=== PATIENT | female | born 1975 | race Caucasian/White ===

== ENCOUNTER → 2018-02-05 09:20 | Outpatient (CLI) | payer OTHER, SELFPAY ==
[2018-02-05 12:45] LABS: Thyroid Stim Hormone (TSH) 2.38 uIU/mL (0.358-3.74)
== END ==
PROVIDERS: Visit Provider Internal Medicine Endocrinology, Diabetes & Metabolism
DX: E03.9 Hypothyroidism, unspecified (principal)
CPT/HCPCS: 36415; 84443

== ENCOUNTER → 2018-04-13 09:30 | Outpatient (CLI) | payer OTHER, SELFPAY ==
[2018-04-13 12:34] LABS: ALB/GLOB Ratio 1.2 RATIO (0.9-2.4); AST(SGOT) 13 U/L (15-37); Alanine Aminotransfer ALT/SGPT 20 U/L (13-56); Albumin, Serum 3.9 g/dL (3.2-5.0); Alkaline Phosphatase 41 U/L (45-117); Anion Gap 9 (5-15); BUN 12 mg/dL (7-18); BUN/Creat Ratio 13.2 RATIO (10-20); Calcium,Total 8.3 mg/dL (8.5-10.1); Chloride 106 mmol/L (98-107); Creatinine, Serum 0.91 mg/dL (0.55-1.02); EST Glomerular Filtration Rate 72 mL/min (>60); Est Glom Filt Rate - Afr Amer 87 mL/min (>60); Free T3 2.5 pg/mL (2.18-3.98); Globulin 3.3 g/dL (2.2-4.2); Glucose 84 mg/dL (74-106); Potassium 3.7 mmol/L (3.5-5.1); Protein, Total 7.2 g/dL (6.4-8.2); Sodium Level 143 mmol/L (136-145); T4 Free Direct 1.14 ng/dL (0.76-1.46); Thyroid Stim Hormone (TSH) 2.24 uIU/mL (0.358-3.74)
== END ==
PROVIDERS: Visit Provider Internal Medicine Endocrinology, Diabetes & Metabolism
DX: E03.9 Hypothyroidism, unspecified (principal); R61 Generalized hyperhidrosis
CPT/HCPCS: 36415; 80053; 84439; 84443; 84481

== ENCOUNTER → 2019-04-23 08:55 | Outpatient (CLI) | payer OTHER, SELFPAY ==
[2019-04-23 10:45] LABS: Free T3 2.7 pg/mL (2.18-3.98); T4 Free Direct 1.17 ng/dL (0.76-1.46); Thyroid Stim Hormone (TSH) 1.18 uIU/mL (0.358-3.74); Vitamin D,25 Hydroxy 79.6 ng/mL (29.95-100.01)
== END ==
PROVIDERS: Referring Provider Internal Medicine Endocrinology, Diabetes & Metabolism; Visit Provider Internal Medicine Endocrinology, Diabetes & Metabolism
DX: E03.9 Hypothyroidism, unspecified (principal)
CPT/HCPCS: 36415; 82306; 84439; 84443; 84481

== ENCOUNTER → 2019-11-11 09:19 | Outpatient (CLI) | payer OTHER, SELFPAY | PROVIDERS: Referring Provider Obstetrics & Gynecology; Visit Provider Obstetrics & Gynecology | DX: N64.4 Mastodynia (principal) ==

== ENCOUNTER → 2020-05-15 09:32 | Outpatient (CLI) | payer OTHER, SELFPAY ==
[2020-05-15 12:29] LABS: Vitamin D,25 Hydroxy 95.5 ng/mL
[2020-05-15 12:48] LABS: Anion Gap 6 (5-15); BUN 9 mg/dL (7-18); BUN/Creat Ratio 11.1 RATIO (10-20); Calcium,Total 8.6 mg/dL (8.5-10.1); Chloride 105 mmol/L (98-107); Creatinine, Serum 0.81 mg/dL (0.55-1.02); EST Glomerular Filtration Rate 81 mL/min (>60); Est Glom Filt Rate - Afr Amer 99 mL/min (>60); Glucose 89 mg/dL (74-106); Potassium 3.6 mmol/L (3.5-5.1); Sodium Level 139 mmol/L (136-145); T4 Free Direct 1.27 ng/dL (0.76-1.46); Thyroid Stim Hormone (TSH) 1.81 uIU/mL (0.358-3.74)
== END ==
PROVIDERS: Referring Provider Internal Medicine Endocrinology, Diabetes & Metabolism; Visit Provider Internal Medicine Endocrinology, Diabetes & Metabolism
DX: E03.9 Hypothyroidism, unspecified (principal)
CPT/HCPCS: 36415; 80048; 82306; 84439; 84443

== ENCOUNTER → 2021-06-08 07:36 | Outpatient (CLI) | payer OTHER, SELFPAY ==
[2021-06-08 10:22] LABS: Vitamin D,25 Hydroxy 73.8 ng/mL
[2021-06-08 10:48] LABS: ALB/GLOB Ratio 1.3 RATIO (0.9-2.4); AST(SGOT) 20 U/L (15-37); Alanine Aminotransfer ALT/SGPT 28 U/L (13-56); Albumin, Serum 4.3 g/dL (3.2-5.0); Alkaline Phosphatase 44 U/L (45-117); Anion Gap 5 (5-15); BUN 9 mg/dL (7-18); BUN/Creat Ratio 9.6 RATIO (10-20); Calcium,Total 9.2 mg/dL (8.5-10.1); Chloride 106 mmol/L (98-107); Creatinine, Serum 0.94 mg/dL (0.55-1.02); EST Glomerular Filtration Rate 69 mL/min (>60); Est Glom Filt Rate - Afr Amer 83 mL/min (>60); Globulin 3.3 g/dL (2.2-4.2); Glucose 97 mg/dL (74-106); Potassium 3.7 mmol/L (3.5-5.1); Protein, Total 7.6 g/dL (6.4-8.2); Sodium Level 139 mmol/L (136-145); T4 Free Direct 1.06 ng/dL (0.76-1.46); Thyroid Stim Hormone (TSH) 3.63 uIU/mL (0.358-3.74)
== END ==
PROVIDERS: Referring Provider Internal Medicine Endocrinology, Diabetes & Metabolism; Visit Provider Internal Medicine Endocrinology, Diabetes & Metabolism
DX: E06.3 Autoimmune thyroiditis (principal); E03.9 Hypothyroidism, unspecified
CPT/HCPCS: 36415; 80053; 82306; 84439; 84443

== ENCOUNTER → 2021-09-22 08:42 | Outpatient (CLI) | payer OTHER, SELFPAY ==
[2021-09-22 11:14] LABS: Free T3 2.2 pg/mL (2.18-3.98); T4 Free Direct 1.18 ng/dL (0.76-1.46); Thyroid Stim Hormone (TSH) 2.59 uIU/mL (0.358-3.74)
== END ==
PROVIDERS: Referring Provider Internal Medicine Endocrinology, Diabetes & Metabolism; Visit Provider Internal Medicine Endocrinology, Diabetes & Metabolism
DX: E03.9 Hypothyroidism, unspecified (principal); E06.3 Autoimmune thyroiditis
CPT/HCPCS: 36415; 84439; 84443; 84481

== ENCOUNTER → 2021-12-09 08:42 | Outpatient (CLI) | payer OTHER, SELFPAY ==
[2021-12-09 10:33] LABS: Follicle Stimulating Hormone 5.6 mIU/mL
== END ==
DX: N95.8 Other specified menopausal and perimenopausal disorders (principal)
CPT/HCPCS: 36415; 83001; 83002

== ENCOUNTER → 2022-06-06 | Outpatient (CLI) | payer OTHER, SELFPAY ==
[2022-06-06 10:15] LABS: Vitamin D,25 Hydroxy 87.6 ng/mL
[2022-06-06 10:44] LABS: ALB/GLOB Ratio 1.1 RATIO (0.9-2.4); AST(SGOT) 17 U/L (15-37); Alanine Aminotransfer ALT/SGPT 25 U/L (13-56); Albumin, Serum 3.8 g/dL (3.2-5.0); Alkaline Phosphatase 30 U/L (45-117); Anion Gap 6 (5-15); BUN 14 mg/dL (7-18); Calcium,Total 8.8 mg/dL (8.5-10.1); Chloride 104 mmol/L (98-107); Creatinine, Serum 1.08 mg/dL (0.55-1.02); EST Glomerular Filtration Rate 58 mL/min (>60); Est Glom Filt Rate - Afr Amer 70 mL/min (>60); Free T3 2.2 pg/mL (2.18-3.98); Globulin 3.5 g/dL (2.2-4.2); Glucose 94 mg/dL (74-106); Potassium 3.9 mmol/L (3.5-5.1); Protein, Total 7.3 g/dL (6.4-8.2); Sodium Level 137 mmol/L (136-145); T4 Free Direct 1.23 ng/dL (0.76-1.46); Thyroid Stim Hormone (TSH) 1.92 uIU/mL (0.358-3.74)
== END | disposition home or self-care (01) ==
LOC: MTLAB 07:50
PROVIDERS: Referring Provider Internal Medicine Endocrinology, Diabetes & Metabolism; Visit Provider Internal Medicine Endocrinology, Diabetes & Metabolism
DX: E06.3 Autoimmune thyroiditis (principal); E03.9 Hypothyroidism, unspecified
CPT/HCPCS: 36415; 80053; 82306; 84439; 84443; 84481

== ENCOUNTER → 2022-07-14 | Outpatient (CLI) | payer OTHER, SELFPAY ==
[2022-07-15 22:06] LABS: Thyroid Peroxidase AB 70 IU/mL (0-34)
[2022-07-17 09:09] LABS: Thyroglobulin Antibody < 1.0 IU/mL (0.0-0.9)
== END | disposition home or self-care (01) ==
LOC: MTLAB 08:46
PROVIDERS: Referring Provider Internal Medicine Endocrinology, Diabetes & Metabolism; Visit Provider Internal Medicine Endocrinology, Diabetes & Metabolism
DX: E06.3 Autoimmune thyroiditis (principal); E03.9 Hypothyroidism, unspecified
CPT/HCPCS: 36415; 86376; 86800

== ENCOUNTER 2023-02-19 22:42 | Inpatient (IN) | payer OTHER, SELFPAY ==
[2023-02-19 22:42] VITALS: BP 112/64; PULSE 76; RESP 16; TEMP 36.6; O2SAT 98; BMI 23.7
--- NOTE | 2023-02-19 22:58 | CT_ITS ---
We are attempting to reach an attending provider to discuss findings. An addendum with communication details will be sent when the communication is complete. EXAM: CT ANGIOGRAPHY ABDOMEN AND PELVIS WITHOUT AND WITH INTRAVENOUS CONTRAST CLINICAL INDICATION: abd pain TECHNIQUE: Helically acquired angiography images were obtained of the abdomen and pelvis without and with intravenous contrast. This CT exam was performed using one or more of the following dose reduction techniques: automated exposure control, adjustment of the mA and/or kV according to patient size, and/or use of iterative reconstruction technique. MIP reconstructed images were created and reviewed. CONTRAST: 100 cc of Isovue-370 IV. RADIATION DOSE: CTDIvol = 20.94 mGy, DLP = 306.78 mGy-cm COMPARISON: No relevant prior studies available. FINDINGS: VASCULATURE: AORTA: No acute findings. Normal caliber abdominal aorta. No dissection. CELIAC TRUNK AND MESENTERIC ARTERIES: No acute findings. No occlusion or significant stenosis. No dissection. RENAL ARTERIES: No acute findings. No occlusion or significant stenosis. No dissection. ILIAC ARTERIES: No acute findings. No occlusion or significant stenosis. No dissection. LOWER THORAX: Unremarkable. Lung bases are clear. No cardiomegaly. No significant pericardial effusion. ABDOMEN: LIVER: Unremarkable. Homogeneous. No focal mass. GALLBLADDER AND BILE DUCTS: Unremarkable. No calcified gallstones. No gallbladder distention or wall edema. No intra- or extrahepatic biliary ductal dilation. PANCREAS: Unremarkable. No focal cystic or solid mass. SPLEEN: Unremarkable. Normal size without focal cystic or solid mass. ADRENALS: Unremarkable. No nodules. KIDNEYS AND URETERS: Unremarkable. Normal renal size and position. No hydronephrosis. STOMACH AND BOWEL: The cecum is displaced into the mid abdomen and is very distended measuring 9 cm in diameter. There is a twist of the ascending colon. No focal inflammatory change. PELVIS: APPENDIX: No evidence of acute appendicitis. BLADDER: Unremarkable. REPRODUCTIVE: Unremarkable as visualized. No mass. ABDOMEN and PELVIS: INTRAPERITONEAL SPACE: Unremarkable. No ascites or other fluid collection. No free air. BONES/JOINTS: Unremarkable. No suspicious lytic or blastic abnormality. SOFT TISSUES: Small fat-containing paraumbilical hernia. LYMPH NODES: Unremarkable. No enlarged lymph nodes. CT/CTA Abd/Pelvis W/WO Contrast IMPRESSION: 1. Cecal volvulus. 2. Small fat-containing paraumbilical hernia. Electronically Signed: Galen Boudreaux MD at 0:22 EDT ,
--- NOTE | 2023-02-19 23:01 | EDS_ITS ---
HPI History of Present Illness Chief Complaint: Abd Pain Informant: patient Onset/Context/Timing Onset: Today Context: Gradual Onset Current Severity: Moderate Maximum Severity: Severe Narrative Narrative: Patient presents secondary to right-sided abdominal pain with nausea. Pain started around 4 5 this evening and is progressed. She had nausea but no vomiting. She feels that she has not had regular bowel movement today. Her diet has been off the last day or 2 after a in the family. She has not had fever or chills. She denies any prior abdominal surgeries. No history of kidney stones. She did take ibuprofen as well as naproxen prior to arrival. [facility] Medical History (Updated 02/20/23 @ 01:[address] Julia Gomez MD) Autoimmune thyroiditis Hypothyroidism Home Medications drospirenone 3 mg-ethinyl estradiol 0.02 mg tablet (Loryna (28)) 1 tab PO DAILY 02/20/23 [History Last Taken Unknown] levothyroxine 50 mcg tablet 50 mcg PO UD 02/20/23 [History Last Taken Unknown] levothyroxine 75 mcg tablet 75 mcg PO DAILY 02/20/23 [History Last Taken Unknown] Allergy/AdvReac Type Severity Reaction Status Date / Time doxycycline Allergy Angioedema Verified 02/19/23 22:44 Social History Smoking Status: Unknown if ever smoked ROS ROS ED Constitutional Constitutional ED: Denies chills or fever(s) Eyes Eyes: Denies discharge from eye(s) ENT ENT ED: Denies discharge from eye(s), rhinorrhea or sore throat Cardiovascular Cardiovascular: Denies chest pain or palpitations Respiratory/Chest Respiratory/Chest: Denies cough or dyspnea Gastrointestinal Gastrointestinal: Reports abdominal pain and nausea; Denies diarrhea or vomiting Genitourinary Genitourinary ED: Denies dysuria Musculoskeletal Musculoskeletal: Reports back pain; Denies extremity pain Integumentary Denies Abrasions or rash Neurologic Neurologic: Denies headache(s) or weakness Psychiatric Psychiatric: Denies anxiety or depression Allergic/Immunologic Allergic/Immunologic ED: Denies lip swelling or urticaria EXAM Physical Exam Const Vital Signs: 02/19/23 22:42 Temperature 98 F Temperature Source Temporal Pulse Rate 76 Respiratory Rate 16 Blood Pressure 112/64 Blood Pressure Mean 80 Pulse Ox 98 Oxygen Delivery Method Room Air Positive well nourished and well developed General Appearance ED: well developed HEENT Reports normocephalic and head/scalp atraumatic Eyes PERRL and EOMs intact bilaterally Neck supple Chest Wall inspection of chest normal and palpation of chest normal Resp normal respiratory effort and clear to auscultation bilaterally Cardio regular rate and regular rhythm GI GI Narrative: Hypoactive bowel sounds noted. Diffuse abdominal tenderness worse in the right lower quadrant out of proportion to exam. Palpation: soft Extremity normal to inspection Neuro oriented x3 and no sensory deficits noted Sensorium / Orientation: alert Motor Exam: strength 5/5 throughout Psych Mood & Affect: anxious Skin no rashes or lesions noted MDM MDM MDM Narrative Medical decision making narrative: Patient had taken anti-inflammatories prior to arrival. She is given morphine and Zofran. Labwork obtained to evaluate for leukocytosis, anemia, and electrolyte derangement. Urinalysis obtained to evaluate for infection/hematuria. CTA of the abdomen pelvis obtained given her degree of pain on exam. Lab Data Attestation: I reviewed the patient's lab results. Labs: Laboratory Results - last 24 hr 02/19/23 02/19/23 02/19/23 23:14 23:14 23:14 WBC 10.6 RBC 4.35 Hgb 13.9 Hct 39.2 MCV 90.1 MCH 32.0 MCHC 35.5 RDW Std Deviation 41.2 RDW Coeff of Carli 12.5 Plt Count 282 MPV 9.6 Immature Gran % (Auto) 0.300 Neut % (Auto) 67.1 Lymph % (Auto) 26.2 Charles % (Auto) 5.6 Eos % (Auto) 0.4 Baso % (Auto) 0.4 Absolute Neuts (auto) 7.1 Absolute Lymphs (auto) 2.79 Nucleated RBC % 0 Sodium 137 Potassium 3.7 Chloride 101 Carbon Dioxide 25.0 Anion Gap 11 BUN 20 H Creatinine 0.94 Estim Creat Clear Calc 61.86 Est GFR (MDRD) Af Amer 82 Est GFR (MDRD) Non-Af 68 BUN/Creatinine Ratio 21.2 H Glucose 150 H Lactic Acid 1.3 Calcium 9.2 Total Bilirubin 0.40 Direct Bilirubin 0.09 AST 21 ALT 29 Alkaline Phosphatase 29 L Total Protein 7.3 Albumin 3.8 Globulin 3.5 Serum , Qual Urine Color Urine Clarity Urine pH Ur Specific [place] Urine Protein Urine Glucose (UA) Urine Ketones Urine Occult Blood Urine Nitrite Urine Bilirubin Urine Urobilinogen Ur Leukocyte Esterase Urine RBC Urine WBC Ur Squamous Epith Cells Urine Bacteria Urine Mucus 02/19/23 02/20/23 23:14 00:20 WBC RBC Hgb Hct MCV MCH MCHC RDW Std Deviation RDW Coeff of Carli Plt Count MPV Immature Gran % (Auto) Neut % (Auto) Lymph % (Auto) Charles % (Auto) Eos % (Auto) Baso % (Auto) Absolute Neuts (auto) Absolute Lymphs (auto) Nucleated RBC % Sodium Potassium Chloride Carbon Dioxide Anion Gap BUN Creatinine Estim Creat Clear Calc Est GFR (MDRD) Af Amer Est GFR (MDRD) Non-Af BUN/Creatinine Ratio Glucose Lactic Acid Calcium Total Bilirubin Direct Bilirubin AST ALT Alkaline Phosphatase Total Protein Albumin Globulin Serum , Qual NEGATIVE Urine Color Yellow Urine Clarity Clear Urine pH 7.0 Ur Specific [place] 1.005 Urine Protein Negative Urine Glucose (UA) Normal Urine Ketones 15 H Urine Occult Blood 25 H Urine Nitrite Negative Urine Bilirubin Negative Urine Urobilinogen Normal Ur Leukocyte Esterase Negative Urine RBC 0 SEEN Urine WBC 0 SEEN Ur Squamous Epith Cells 0 SEEN Urine Bacteria 2+ Urine Mucus 1+ Radiography Diagnostic Testing: Clinical Impression(s) from Imaging Studies Abdomen/Pelvis CTA 02/19/23 22:58 IMPRESSION: 1. Cecal volvulus. 2. Small fat-containing paraumbilical hernia. Electronically Signed: Galen Boudreaux MD at 0:22 EDT , ADDENDUM: 02/20/23 0036 IMPRESSION: 1. Cecal volvulus. 2. Small fat-containing paraumbilical hernia. N.B. : The above Results were Read Back by Galen Boudreaux MD to Julia Gomez MD, and understanding confirmed on 02/20/2023 00:29:11 (ET). Electronically Signed: Galen Boudreaux MD at 0:22 EDT , Treatment and Re-Evaluation :: CBC was normal white count. No left shift. Chemistry studies unremarkable. Lactic acid is normal at 1.3. LFTs are normal. test is negative. Urinalysis reveals no evidence of acute infection. CTA of the abdomen pelvis is obtained. Radiologist feels there is a cecal volvulus. Patient did require second dose of analgesics. I have spoken with the surgeon who has evaluated the images and spoke with the radiologist. He will be in to evaluate the patient with plan to go to the OR. Patient along with her and daughter at bedside have been updated Discharge Plan Triage Chief Complaint: Abd Pain ED Provider: Julia Gomez Dx/Rx/DC Orders Clinical Impression: Cecal volvulus Prescriptions: No Action levothyroxine 50 mcg tablet 50 mcg PO UD Label Comments: TAKE 1 & 1/2 TABLETS BY MOUTH DAILY ON MONDAYS AND WEDNESDAYS AND 1 TABLET DAILY ON ALL OTHER DAYS Rx Instructions: 50 MCG ON , , FRI SAT & SUN drospirenone-ethinyl estradiol [Loryna (28)] 3-0.02 mg tablet 1 tab PO DAILY Label Comments: TAKE 1 TABLET BY MOUTH ONCE DAILY WITH FOOD levothyroxine 75 mcg Tablet 75 mcg PO DAILY Rx Instructions: TAKES 75 MCG ON MON & MON Primary Care Provider: Care Physician,No Primary Referrals: Care Physician,No Primary [Primary Care Provider] - Disposition Disposition: Acute Care Hospital [facility]
[2023-02-19] MEDS: Ondansetron 4 MG/2 ML Vial IV (23:12)
[2023-02-19] MEDS: 0.9% Normal Saline 1,000 ML 150 ML IV (23:13)
[2023-02-19] MEDS: Morphine 4 MG/ML Syringe IV (23:13)
[2023-02-19 23:27] LABS: Absolute Lymphocyte Count 2.79 X10^3/uL (0.83-4.51); Absolute Neutrophil Count 7.1 X10^3/uL (2.0-7.7); Basophil# 0.04 X10^3/uL; Basophil% 0.4 % (0-1); Eosinophil# 0.04 X10^3/uL; Eosinophils% 0.4 % (0-5); Hematocrit 39.2 % (37-47); Hemoglobin 13.9 g/dL (12.0-15.0); Lymphocyte # 2.79 X10^3/ul (0.83-4.51); Lymphocyte % 26.2 % (19-41); Mean Corp Hgb Conc 35.5 g/dL (32-36); Mean Corpuscular Volume 90.1 fL (81-99); Mean Platelet Vol. 9.6 fl (6.2-12.0); Monocyte# 0.59 X10^3/uL; Monocyte% 5.6 % (0-10); NRBC Flagged by Analyzer 0 % (0-5); Neutrophil # 7.14 X10^3/uL (2.7-7.7); Neutrophil % 67.1 % (47-70); Platelet Count 282 K/mm3 (150-450); RBC Distribution Width CV 12.5 % (11.6-14.6); RBC Distribution Width SD 41.2 fl (35.1-43.9); Red Blood Count 4.35 M/mm3 (4.2-5.4); White Blood Count 10.6 K/mm3 (4.4-11.0)
[2023-02-19 23:39] LABS: AST(SGOT) 21 U/L (15-37); Alanine Aminotransfer ALT/SGPT 29 U/L (13-56); Albumin, Serum 3.8 g/dL (3.2-5.0); Alkaline Phosphatase 29 U/L (45-117); Anion Gap 11 (5-15); BUN 20 mg/dL (7-18); BUN/Creat Ratio 21.2 RATIO (10-20); Bilirubin, Direct 0.09 mg/dL (0.00-0.30); Calcium,Total 9.2 mg/dL (8.5-10.1); Chloride 101 mmol/L (98-107); Creatinine, Serum 0.94 mg/dL (0.55-1.02); EST Glomerular Filtration Rate 68 mL/min (>60); Est Glom Filt Rate - Afr Amer 82 mL/min (>60); Estimated Creatinine Clearance 61.86 ml/min; Globulin 3.5 g/dL (2.2-4.2); Glucose 150 mg/dL (74-106); Potassium 3.7 mmol/L (3.5-5.1); Protein, Total 7.3 g/dL (6.4-8.2); Sodium Level 137 mmol/L (136-145)
[2023-02-19 23:56] LABS: Internal QC Validated? YES +Cl - CLEAR BKGD; Pregnancy, Serum, hCG Quali. NEGATIVE Negative
[2023-02-19 23:57] LABS: Lactic Acid 1.3 mmol/L (0.4-1.9)
[2023-02-20] VITALS (13 sets, daily range): BP systolic 105–133; BP diastolic 62–82; PULSE 66–99; RESP 15–18; TEMP 36.4–37.8; O2SAT 94–100; BMI 23.7; BMI 22.1
[2023-02-20 00:30] LABS: Red Blood Cells-Urine 0 SEEN /hpf (0-5); Squamous Epithelial Cells - UA 0 SEEN /hpf (5-10); White Blood Cells 0 SEEN /hpf (0-5)
[2023-02-20 00:31] LABS: Color, Urine Yellow (Yellow); Glucose, Dipstick Normal (Normal); Ketone-Dipstick 15 mg/dl (Negative); Leukocyte Esterase-Dipstick Negative /ul (Negative); Nitrite-Dipstick Negative (Negative); Occult Blood-Urine 25 /ul (Negative); Protein-Dipstick Negative (Negative); Specific Gravity, Urine 1.005 (1.002-1.030); Urine Bilirubin Dipstick Negative (Negative); Urine Clarity Clear (Clear); Urine Urobilinogen Normal (Normal)
[2023-02-20] MEDS: HYDROmorphone 0.5 MG/0.5 ML SYRINGE IV (00:31)
[2023-02-20 00:38] LABS: Bacteria 2+ /hpf (None Seen); Mucous, Urine 1+ /hpf (<or=2+)
--- NOTE | 2023-02-20 01:26 | PCM.HP.STD ---
HPI - General HPI Narrative PETR MERCHANT, is a 47 F who presents with acute abdominal pain. Patient reports that about 6 hours ago she experienced acute right-sided abdominal pain. It has been worsening. She reports no bowel movement today. She does have nausea. She says she has chronic constipation. Says the pain is worse in the right lower quadrant. [facility] Medical History (Updated 02/20/23 @ 01:[address] Julia Gomez MD) Autoimmune thyroiditis Hypothyroidism Home Medications drospirenone 3 mg-ethinyl estradiol 0.02 mg tablet (Loryna (28)) 1 tab PO DAILY 02/20/23 [History Last Taken Unknown] levothyroxine 75 mcg tablet 75 mcg PO DAILY 02/20/23 [History Last Taken Unknown] Allergy/AdvReac Type Severity Reaction Status Date / Time doxycycline Allergy Angioedema Verified 02/19/23 22:44 Social History Smoking Status: Unknown if ever smoked ROS Constitutional Constitutional: Denies anorexia, chills, fatigue or fever(s) Eyes Eyes: Denies blurry vision ENT HEENT: Denies abnormal hearing Cardiovascular Cardiovascular: Denies chest pain or chest pain at rest Respiratory/Chest Respiratory/Chest: Denies cough or dyspnea Gastrointestinal Gastrointestinal: Reports abdominal pain, constipation and nausea; Denies rectal bleeding or vomiting Genitourinary Genitourinary: Denies change in urinary stream Musculoskeletal Musculoskeletal: Denies abnormal gait Integumentary Integumentary: Denies jaundice Neurologic Neurologic: Denies dizziness Vital Signs Vital Signs Vital Signs: 02/19/23 22:42 Temperature 98 F Temperature Source Temporal Pulse Rate 76 Respiratory Rate 16 Blood Pressure 112/64 Blood Pressure Mean 80 Pulse Ox 98 Oxygen Delivery Method Room Air Weight Weight: 134 lb Body Mass Index (BMI) 23.7 Physical Exam Const oriented x3 and no apparent distress Resp normal respiratory effort Cardio regular rate and regular rhythm GI soft to palpation Inspection: abdominal distention Palpation: tender RLQ Results Lab / Micro Data Result Diagrams: 02/19/23 23:14 02/19/23 23:14 Labs: Laboratory Results - last 24 hr 02/19/23 23:14: WBC 10.6, RBC 4.35, Hgb 13.9, Hct 39.2, MCV 90.1, MCH 32.0, MCHC 35.5, RDW Std Deviation 41.2, RDW Coeff of Carli 12.5, Plt Count 282, MPV 9.6, Immature Gran % (Auto) 0.300, Neut % (Auto) 67.1, Lymph % (Auto) 26.2, Mcdonough % (Auto) 5.6, Eos % (Auto) 0.4, Baso % (Auto) 0.4, Absolute Neuts (auto) 7.1, Absolute Lymphs (auto) 2.79, Nucleated RBC % 0 02/19/23 23:14: Sodium 137, Potassium 3.7, Chloride 101, Carbon Dioxide 25.0, Anion Gap 11, BUN 20 H, Creatinine 0.94, Estim Creat Clear Calc 61.86, Est GFR (MDRD) Af Amer 82, Est GFR (MDRD) Non-Af 68, BUN/Creatinine Ratio 21.2 H, Glucose 150 H, Calcium 9.2, Total Bilirubin 0.40, Direct Bilirubin 0.09, AST 21, ALT 29, Alkaline Phosphatase 29 L, Total Protein 7.3, Albumin 3.8, Globulin 3.5 02/19/23 23:14: Lactic Acid 1.3 02/19/23 23:14: Serum , Qual NEGATIVE 02/20/23 00:20: Urine Color Yellow, Urine Clarity Clear, Urine pH 7.0, Ur Specific [place] 1.005, Urine Protein Negative, Urine Glucose (UA) Normal, Urine Ketones 15 H, Urine Occult Blood 25 H, Urine Nitrite Negative, Urine Bilirubin Negative, Urine Urobilinogen Normal, Ur Leukocyte Esterase Negative, Urine RBC 0 SEEN, Urine WBC 0 SEEN, Ur Squamous Epith Cells 0 SEEN, Urine Bacteria 2+, Urine Mucus 1+ Radiology Impression Abdomen/Pelvis CTA 02/19/23 22:58 IMPRESSION: 1. Cecal volvulus. 2. Small fat-containing paraumbilical hernia. Electronically Signed: Galen Boudreaux MD at 0:22 EDT , ADDENDUM: 02/20/23 0036 IMPRESSION: 1. Cecal volvulus. 2. Small fat-containing paraumbilical hernia. N.B. : The above Results were Read Back by Galen Boudreaux MD to Julia Gomez MD, and understanding confirmed on 02/20/2023 00:29:11 (ET). Electronically Signed: Galen Boudreaux MD at 0:22 EDT , ADDENDUM: 02/20/23 0100 IMPRESSION: undefined Assessment & Plan Assessment/Plan (1) Cecal volvulus: PLAN: The patient has acute abdominal pain. She had a CT scan which showed a cecal volvulus. It is a little concerning that there is copious amount of stool and distention throughout the rest of the colon and she does have chronic constipation but I did discuss with the radiologist and he checked with a colleague and they will see twisting in the right lower quadrant of the mesentery leading to diagnosis of cecal volvulus. I discussed this with the patient. I discussed exploratory laparoscopy but unlikely to be able to visualize the bowel due to the amount of distention and I would likely have to convert to laparotomy. I discussed resection of the cecum. I discussed the risks of the procedure including but not limited to bleeding, infection, injury to other organs in the abdomen, I also discussed the possibility that this was chronic constipation and there was no volvulus and that there is a possibility of exploratory laparotomy without resection. I also discussed the small possibility of having to create a stoma. Patient understands all the risks and consents for surgery. I will attempt laparoscopic surgery but likely have to convert to open to visualize the cecum. I also will have the ER place an NG tube for decompression of the stomach as it looks fairly distended on the CT scan to avoid aspiration during induction of anesthesia. Madan Fu MD Pager: [facility] [address] [place] [address], [address] [place] [address] Office:
--- NOTE | 2023-02-20 01:36 | RAD_ITS ---
EXAM: XR ABDOMEN, 1 VIEW CLINICAL INDICATION: ng placement TECHNIQUE: Frontal supine view of the abdomen/pelvis. COMPARISON: CT scan of the abdomen and pelvis 523. FINDINGS: LOWER THORAX: No acute pathology. GASTROINTESTINAL TRACT: Partially visualized dilated loop of bowel in the midabdomen that was seen to represent a dilated cecum on the CT scan. ORGANS: Unremarkable as visualized. No organomegaly. No abnormal calcifications. BONES/JOINTS: No acute pathology. SOFT TISSUES: No acute pathology. TUBES, LINES AND DEVICES: NG tube is in the stomach with the tip somewhat distal approximately 25 cm distal to the gastroesophageal junction. RAD/Abdomen Single View (Portable) IMPRESSION: 1. NG tube is in the stomach with the tip somewhat distal approximately 25 cm distal to the gastroesophageal junction. 2. Partially visualized dilated loop of bowel in the midabdomen that was seen to represent a dilated cecum on the CT scan. Electronically Signed: Galen Boudreaux MD at 2:20 EDT ,
--- NOTE | 2023-02-20 02:05 | EKG12_ITS ---
Test Reason : PRE OP Blood Pressure : / mmHG Vent. Rate : 066 BPM Atrial Rate : 066 BPM P-R Int : 148 ms QRS Dur : 084 ms QT Int : 422 ms P-R-T Axes : 066 070 033 degrees QTc Int : 442 ms Normal sinus rhythm Normal ECG Confirmed by DAVIS AGUSTIN, VALENTIN ([id number]), general expeditor CARLENE DANIELSON ([id number]) on 02/21/2023 8:14:46 AM Referred By: MAGDALENO Confirmed By:VALENTIN CANNON MD
--- NOTE | 2023-02-20 02:50 | COL_PTH ---
PATIENT: SHONDAJANUARY IBRAHIMA LOC: MS3 U#:[id number] AGE/SX: 47/F ROOM: [place] RE02/20/[address]: Dr. Madan Fu MD : 1975 BED: 1 DIS: 02/22/2023 SPEC #: [id number] RECD: 02/20/23 10:46 STATUS: YAMIL MILLER #: [id number] KIKA: 02/20/23 02:[address]: Madan Fu DEPT: SURGICAL PATHOLOGY RECD BY: Vanessa Scott ENTERED: 02/20/23 13:31 SP TYPE: COLON OTHR DR: No Primary Care Phys Tissues: Colon, NOS Procedures: Surgery Specimen Level V HEADER OPERATION: Laparoscopic hemicolectomy PRE-OP DIAGNOSIS: Cecal volvulus TISSUE SUBMITTED: Cecum MICROSCOPIC DIAGNOSIS Cecum, segmental resection: Attenuation of mucosal lining and vascular congestion consistent with volvulus. Small bowel and large bowel mucosal margins of excision with no significant pathologic change. Appendix with no significant pathologic change. AM:martin 02/22/2023 MICROSCOPIC DESCRIPTION Slides are reviewed. GROSS DESCRIPTION Received in fixative is one container labeled with the patient's name and designated cecum. The specimen consists of a right hemicolectomy specimen consisting of dilated cecum, segment of small intestine and appendix. The dilated cecum measures 18.0 cm in length and up to 10.0 cm in diameter. The segment of small intestine measures 3.0 cm in length and appendix measures 7.6 cm in length and 0.6 cm in diameter. The serosal surface is congested. The lumen contains fecal material. No mucosal lesion is identified. Also present in the container is a donut-shaped piece of tissue measuring 3.5 x 1.5 x 1.0 cm. More sections will follow after fixation. / SJ:martin 02/20/2023 Sections of appendix shows the lumen to be filled with fecal material. No mucosal lesion is identified. The mucosa is flattened. Sections of the pericolonic adipose tissue do not reveal any lymph node. Collections Director sections are submitted in eight cassettes as follows: 1 - proximal and distal resection margin, 2-4 - appendix, entirely submitted, 5 - small bowel and ileocecal valve, 6 - cecum, 7??pericolonic adipose tissue, 8 - donut-shaped piece of tissue. / SJ:martin 02/21/2023 TC:5 CPT: 26329
[2023-02-20] MEDS: Bupivacaine 0.25% 30 ML Vial (03:41)
--- NOTE | 2023-02-20 03:47 | OP.PCM_ITS ---
Report of Operation Date of Procedure: 02/20/23 Pre-Operative Diagnosis: Cecal volvulus Post-Operative Diagnosis: Cecal volvulus Surgery/Procedure Performed:: Ileocecectomy with primary anastomosis Description of Surgical Findings:: Cecal volvulus with no ischemia Specimen's removed: Cecum Description of Procedure: Patient was brought back to the operating room and general anesthesia was induced. The Barnard catheter was placed. The abdomen was then prepped and draped in usual sterile fashion. A small midline incision was made superior to the umbilicus and deepened to the fascia which was elevated and incised. A port was placed into the abdomen and it was insufflated 15 mmHg. Camera placed into the abdomen. The cecum appeared to be volvulized with no ischemia. At this point the port was removed and the air was allowed to leave the abdomen and the incision was lengthened. The wound protector was placed and the cecum was delivered through the incision. It appeared to be turned around and adhesion from the right upper quadrant. This adhesion was lysed and the bowel was returned to normal anatomical position. The distal ascending colon had mainta ined its lateral attachment. Just proximal to this an area of colon was divided using the ILSA stapler. The terminal ileum was divided using a LISA stapler in the same fashion and then the LigaSure impact was used to remove the colon from its mesentery. It was sent for pathology. The tenia at the ascending colon was then opened as well as the staple corner on the terminal ileum and a LISA stapler was used to create a [id number] functional end-to-end anastomosis. Staple line was inspected and appeared to be hemostatic. There is good bleeding at the tissue edges of both sides of bowel. The TX 60 was then used to close the enterostomy. 3-0 silk sutures were used to maintain hemostasis. 3-0 silk crotch suture was placed. The mesenteric defect was closed using a running 3-0 Vicryl suture. The bowel was replaced into the abdomen and the abdomen was irrigated and suctioned dry and there appeared to be good hemostasis. Next the gloves of the operating crew were changed and the fascia was closed with a running 0 PDS suture from top and bottom meeting in the middle. The subcutaneous tissue was irrigated and then local anesthetic was used on the skin. The skin was closed with interrupted 4-0 Monocryl sutures. Steri-Strips and bandages were applied. Patient was awoken and Barnard catheter was maintained but NG was removed and and patient was taken to PACU in stable condition. Admit VTE Documentation VTE Mechan Device Prophylaxis: SCD's
[2023-02-20] MEDS: Lactated Ringers 1,000 ML 15 ML IV (04:12)
[2023-02-20] MEDS: 0.9% Normal Saline 1,000 ML 100 ML IV ×2 (05:35→15:07)
--- NOTE | 2023-02-20 06:15 | NURSING ---
AMBULATED IN RUBI. TOLERATED WELL.
[2023-02-20] MEDS: Levothyroxine 75 MCG Tablet PO (09:34)
[2023-02-20] MEDS: Ketorolac 15 MG/ML Vial IV ×2 (09:37→18:04)
--- NOTE | 2023-02-20 10:20 | CASEMGMT ---
CLIFF HANNA Assessment: Face to Face with pt for initial transition planning/care coordination assessment. RN JACQUES introduced self and role at [facility], pt voices understanding and consents to assessment. Pt is A/O x4 and answers all questions appropriately at this time. Pt lying in bed with at bedside in no distress. Care providers, pharmacy, and demographics verified/updated. Admitting Dx: cecal volvulus PCP:Pt denies. Pt denies need for list of local healthcare directory. Specialists:lenore Martinez HEALTH PHYSICIST Preferred Pharmacy: [facility] Insurance: MMO Prescription Benefit: yes LNOK: Abel Jefferson, Living Arrangements: Pt lives with and dtr in a two story home with 2 steps to enter. Pt reports she is I in ADL's and denies concerns at home. Transportation: Pt drives self and denies concerns with transportation. DME/HHC/SNF: Pt denies having any DME, previous HHC or SNF stays. Pt states no concerns with going home at time of dc. Pt states no further concerns/needs. CM to follow. Advised pt to ask CM if any further question/concerns/needs arise, voices understanding. Pt Goal: Home Plan: Home
[2023-02-20] MEDS: Acetaminophen 325 MG Tablet 650 MG PO ×2 (15:07→21:24)
[2023-02-20] MEDS: Ensure Clear 120 ML Liquid PO ×2 (18:00→21:24)
[2023-02-21] VITALS (7 sets, daily range): BP systolic 103–116; BP diastolic 58–73; PULSE 67–79; RESP 16–18; TEMP 36.4–37.3; O2SAT 98–100
[2023-02-21] MEDS: 0.9% Normal Saline 1,000 ML 100 ML IV (00:38)
[2023-02-21] MEDS: Morphine 2 MG/ML Syringe IV ×2 (00:40→22:10)
[2023-02-21] MEDS: Ketorolac 15 MG/ML Vial IV ×3 (02:34→17:30)
[2023-02-21] MEDS: Levothyroxine 50 MCG Tablet PO (06:19)
--- NOTE | 2023-02-21 06:58 | PN.SURG_ITS ---
Subjective Subjective Patient's pain is well controlled and she started passing flatus last night. No nausea or vomiting. Minimal abdominal pain. Objective Data Objective Data Vital Signs: Vital Signs Temp Pulse Resp BP Pulse Ox O2 Del Method 98.9 F 67 18 110/73 100 Room Air 02/21/23 06:15 02/21/23 06:15 02/21/23 06:15 02/21/23 06:15 02/21/23 06:15 02/21/23 06:15 Oxygen Delivery Method Room Air Weight: 124 lb 15.998 oz Body Mass Index (BMI) 22.1 Intake & Output: Intake and Output for Last 24 Hours 02/19/23 02/20/23 02/21/23 23:59 23:59 23:59 Intake Total 2122.83 / 2122.83 951.67 / 951.67 Output Total 2550 / 2550 Balance -427.17 / -427.17 951.67 / 951.67 Lab / Micro Data Result Diagrams: 02/19/23 23:14 02/19/23 23:14 Physical Exam Const oriented x3 Resp normal respiratory effort GI normal to inspection, nondistended, normoactive bowel sounds Assessment & Plan Assessment/Plan (1) Cecal volvulus: PLAN: 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 She is passing some flatus with minimal pain and no nausea. She tolerated clear liquids and I will advance her to full liquids and advance that as tolerated to regular. Anticipate DC tomorrow if she is doing well. Madan Fu MD Pager: [facility] [address] [place] [address] [address] [place] [address] Office:
[2023-02-21 07:05] LABS: Absolute Lymphocyte Count 1.64 X10^3/uL (0.83-4.51); Absolute Neutrophil Count 8.3 X10^3/uL (2.0-7.7); Basophil# 0.04 X10^3/uL; Basophil% 0.4 % (0-1); Eosinophil# 0.03 X10^3/uL; Eosinophils% 0.3 % (0-5); Hematocrit 35.8 % (37-47); Hemoglobin 11.6 g/dL (12.0-15.0); Lymphocyte # 1.64 X10^3/ul (0.83-4.51); Lymphocyte % 15.6 % (19-41); Mean Corp Hgb Conc 32.4 g/dL (32-36); Mean Corpuscular Hgb 30.8 pg (27.0-32.0); Mean Platelet Vol. 9.5 fl (6.2-12.0); Monocyte# 0.45 X10^3/uL; Monocyte% 4.3 % (0-10); NRBC Flagged by Analyzer 0 % (0-5); Neutrophil # 8.32 X10^3/uL (2.7-7.7); Neutrophil % 78.9 % (47-70); Platelet Count 202 K/mm3 (150-450); RBC Distribution Width CV 13.2 % (11.6-14.6); Red Blood Count 3.77 M/mm3 (4.2-5.4); White Blood Count 10.5 K/mm3 (4.4-11.0)
[2023-02-21 07:26] LABS: Anion Gap 4 (5-15); BUN 8 mg/dL (7-18); BUN/Creat Ratio 9.7 RATIO (10-20); Chloride 112 mmol/L (98-107); Creatinine, Serum 0.83 mg/dL (0.55-1.02); EST Glomerular Filtration Rate 79 mL/min (>60); Est Glom Filt Rate - Afr Amer 95 mL/min (>60); Estimated Creatinine Clearance 70.06 ml/min; Glucose 121 mg/dL (74-106); Potassium 3.7 mmol/L (3.5-5.1); Sodium Level 142 mmol/L (136-145)
[2023-02-21] MEDS: Acetaminophen 325 MG Tablet 650 MG PO (12:57)
[2023-02-21] MEDS: 0.9% Saline Lock 10 ML Syringe IV ×2 (17:30→22:11)
[2023-02-22] MEDS: 0.9% Saline Lock 10 ML Syringe IV (02:39)
[2023-02-22] MEDS: Ketorolac 15 MG/ML Vial IV (02:39)
[2023-02-22 02:56] VITALS: BP 119/74; PULSE 71; RESP 16; TEMP 37.3; O2SAT 100
[2023-02-22] MEDS: oxyCODONE 5 MG Tablet PO (07:30)
[2023-02-22] MEDS: Levothyroxine 75 MCG Tablet PO (07:30)
--- NOTE | 2023-02-22 07:59 | PCM.DC.SUM ---
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 She is passing some flatus with minimal pain and no nausea. She tolerated clear liquids and I will advance her to full liquids and advance that as tolerated to regular. Anticipate DC tomorrow if she is doing well. Madan Fu MD Pager: [facility] [address] [place] [address], [address] [place] [address] Office: Medications at Discharge Home Medications drospirenone 3 mg-ethinyl estradiol 0.02 mg tablet (Loryna (28)) 1 tab PO DAILY 02/20/23 levothyroxine 50 mcg tablet 50 mcg PO SUTUTHFRSA THYROID 02/20/23 levothyroxine 75 mcg tablet 75 mcg PO MOWE THYROID 02/20/23 naproxen 375 mg tablet 375 mg PO BID PRN PRN Pain 1-10 Or Fever #0 tabs 02/22/23 oxycodone 5 mg tablet 5 - 10 mg PO Q4H PRN PRN Pain Score 4-10 5 days #20 tabs 02/22/23 Hospital Course Summary of Care Provided Hospital Course: Patient to the emergency room with abdominal pain. Patient was found to have a cecal volvulus and was immediately taken for ileocecectomy. Following surgery the patient was admitted to the floor and started on clear liquid diet. Once tolerating clear liquid she was advanced to a regular diet and started on p.o. pain medication. She is feeling well this morning her abdomen is soft and she is passing flatus and she will be discharged home and follow-up with me in 1 week. Physical Exam Const oriented x3 Resp normal respiratory effort Cardio regular rate and regular rhythm GI soft to palpation Inspection: Negative for abdominal distention Weight / BMI Weight Weight: 124 lb 15.998 oz Body Mass Index (BMI) 22.1 ABG / Lab / Microbiology Data Result Diagrams: 02/21/23 06:58 02/21/23 06:58 D/C Instructions Discharge Diet: No restrictions Discharge Activity: May Drive (in 2-3 days and after off of narcotics) and May Shower Lifting Restrictions: 15 lbs for 4 weeks Call your doctor if your incision/area has: Continuous Slow Oozing, Sudden Increased Bleeding, Increased Pain/ Swelling, Increased Redness, Foul Smelling Discharge and Swelling at the incision site Call your doctor if you observe: Fever of 101 or Higher, Inability to urinate and Inability to have a bowel movement Remove Dressing in: 1 week (Remove steri strips in 7-10 days, ok to shower over them) Cleanse incision/area with: Soap & Water Please Follow Up With: Madan Fu MD When: Please call to schedule 1 week follow up appointment. [phone] Meaningful Use Info Meaningful Use Diagnoses (Choose all that apply): None applicable Discharge Plan Admission Admit Date/Time: 02/20/23 03:51 Attending Provider: Madan Fu Primary Care Provider: Care Physician,Marley Primary Discharge Orders/Prescriptions Prescriptions: New naproxen 375 mg Tablet 375 mg PO BID PRN PRN (Reason: Pain 1-10 Or Fever) Qty: 0 0RF oxycodone 5 mg Tablet 5 - 10 mg PO Q4H PRN PRN (Reason: Pain Score 4-10) 5 Days Qty: 20 0RF Continued drospirenone-ethinyl estradiol [Loryna (28)] 3-0.02 mg tablet 1 tab PO DAILY Label Comments: TAKE 1 TABLET BY MOUTH ONCE DAILY WITH FOOD levothyroxine 75 mcg Tablet 75 mcg PO MOWE Rx Instructions: TAKES 75 MCG ON MON & MON levothyroxine 50 mcg tablet 50 mcg PO SUTUTHFRSA Label Comments: TAKE 1 & 1/2 TABLETS BY MOUTH DAILY ON MONDAYS AND WEDNESDAYS AND 1 TABLET DAILY ON ALL OTHER DAYS Referrals / Follow Up: Care Physician,No Primary [Primary Care Provider] - Disposition Disposition (needs filled in before D/C Order can be placed): Home, Self Care
[2023-02-22 09:19] VITALS: BP 120/81; PULSE 71; RESP 16; TEMP 36.6; O2SAT 100
--- NOTE | 2023-02-22 09:24 | CASEMGMT ---
TC to [facility] Retail pharmacy, pt cost for the pain med is $3.35. Pharmacy states they are on the phone with the patient now. RN CM into pt room, pt states the meds are going to be delivered to the room. She denies any homegoing needs.
--- NOTE | 2023-02-22 10:30 | PHA.DC.MC ---
Pharmacy Service has performed discharge medication reconciliation and counseling for this patient. 1. NAPROXEN 375MG PO BID PRN PAIN OR FEVER 2. OXYCODONE 5-10MG PO Q4H PRN PAIN The patient's discharge medication list was reviewed for discrepancies and discrepancies were resolved. Home Medications drospirenone 3 mg-ethinyl estradiol 0.02 mg tablet (Loryna (28)) 1 tab PO DAILY 02/20/23 levothyroxine 50 mcg tablet 50 mcg PO SUTUTHFRSA THYROID 02/20/23 levothyroxine 75 mcg tablet 75 mcg PO MOWE THYROID 02/20/23 naproxen 375 mg tablet 375 mg PO BID PRN PRN Pain 1-10 Or Fever #0 tabs 02/22/23 oxycodone 5 mg tablet 5 - 10 mg PO Q4H PRN PRN Pain Score 4-10 5 days #20 tabs 02/22/23 The patient was counseled on the following discharge medications and changes in medications for homegoing were reviewed. The Reason for Use, instructions for use, and potential side effects were reviewed for all new medications. The patient's questions regarding all of their medications were answered. The patient was able to verbally demonstrate an understanding of their discharge medications.
[2023-02-22] MEDS: Naproxen 375 MG Tablet PO (12:02)
== END 2023-02-22 12:45 | disposition home or self-care (01) | DRG 331 ==
LOC: ED 02-20 01:57 → SDC 02-20 02:13 → ACINP 02-20 02:15 → SDC 02-20 04:59 → MS3 02-20 04:59
PROVIDERS: Admitting Provider Surgery; Emergency Provider Emergency Medicine; Visit Provider Surgery
PROC: 0DTH4ZZ Resection of Cecum, Percutaneous Endoscopic Approach (ICD-10-PCS; principal; 2023-02-20 02:30)
DX: K56.2 Volvulus (principal); E03.9 Hypothyroidism, unspecified
CPT/HCPCS: 36415; 74018; 74174; 80048; 80076; 81001; 83605; 84703; 85025; 88305; 88307; 93005; 94668; 99252; 99285; J7030; J7120; Q9967; A4216; G0463; J2405

== ENCOUNTER → 2023-06-08 | Outpatient (CLI) | payer OTHER, SELFPAY ==
[2023-06-08 11:24] LABS: ALB/GLOB Ratio 1.1 RATIO (0.9-2.4); AST(SGOT) 16 U/L (15-37); Alanine Aminotransfer ALT/SGPT 35 U/L (13-56); Albumin, Serum 3.7 g/dL (3.2-5.0); Alkaline Phosphatase 33 U/L (45-117); Anion Gap 6 (5-15); BUN 14 mg/dL (7-18); BUN/Creat Ratio 15.1 RATIO (10-20); Calcium,Total 8.9 mg/dL (8.5-10.1); Chloride 103 mmol/L (98-107); Creatinine, Serum 0.93 mg/dL (0.55-1.02); EST Glomerular Filtration Rate 69 mL/min (>60); Est Glom Filt Rate - Afr Amer 83 mL/min (>60); Free T3 2.2 pg/mL (2.18-3.98); Globulin 3.5 g/dL (2.2-4.2); Glucose 109 mg/dL (74-106); Potassium 3.8 mmol/L (3.5-5.1); Protein, Total 7.2 g/dL (6.4-8.2); Sodium Level 138 mmol/L (136-145); T4 Free Direct 1.21 ng/dL (0.76-1.46); Thyroid Stim Hormone (TSH) 2.64 uIU/mL (0.358-3.74)
[2023-06-09 16:09] LABS: Thyroglobulin Antibody < 1.0 IU/mL (0.0-0.9); Thyroid Peroxidase AB 28 IU/mL (0-34)
== END | disposition home or self-care (01) ==
LOC: MTLAB 09:36
PROVIDERS: Referring Provider Internal Medicine Endocrinology, Diabetes & Metabolism; Visit Provider Internal Medicine Endocrinology, Diabetes & Metabolism
DX: E06.3 Autoimmune thyroiditis (principal); E03.9 Hypothyroidism, unspecified
CPT/HCPCS: 36415; 80053; 84439; 84443; 84481; 86376; 86800

== ENCOUNTER 2023-06-21 08:55 | Outpatient (CLI) | payer OTHER, SELFPAY ==
[2023-06-21 10:17] LABS: Absolute Lymphocyte Count 1.75 X10^3/uL (0.83-4.51); Absolute Neutrophil Count 2.4 X10^3/uL (2.0-7.7); Basophil# 0.06 X10^3/uL; Basophil% 1.3 % (0-1); Eosinophil# 0.04 X10^3/uL; Eosinophils% 0.9 % (0-5); Hematocrit 40.9 % (37-47); Hemoglobin 13.8 g/dL (12.0-15.0); Lymphocyte # 1.75 X10^3/ul (0.83-4.51); Lymphocyte % 37.5 % (19-41); Mean Corp Hgb Conc 33.7 g/dL (32-36); Mean Corpuscular Hgb 30.9 pg (27.0-32.0); Mean Corpuscular Volume 91.7 fL (81-99); Mean Platelet Vol. 9.8 fl (6.2-12.0); Monocyte# 0.37 X10^3/uL; Monocyte% 7.9 % (0-10); NRBC Flagged by Analyzer 0 % (0-5); Neutrophil # 2.44 X10^3/uL (2.7-7.7); Neutrophil % 52.2 % (47-70); Platelet Count 266 K/mm3 (150-450); RBC Distribution Width CV 12.5 % (11.6-14.6); RBC Distribution Width SD 41.7 fl (35.1-43.9); Red Blood Count 4.46 M/mm3 (4.2-5.4); White Blood Count 4.7 K/mm3 (4.4-11.0)
[2023-06-21 10:37] LABS: Cholesterol 205 mg/dL (200); High Density Lipoprotein 93 mg/dL; Triglycerides 97 mg/dL; Very Low Density Lipoprotein 19 mg/dL (5-40)
[2023-06-21 11:12] LABS: Hemoglobin A1c 5.1 % (3.8-5.6)
== END 2023-06-21 23:59 | disposition home or self-care (01) ==
LOC: MTLAB 08:57
PROVIDERS: PCP Internal Medicine; Referring Provider Internal Medicine; Visit Provider Internal Medicine
DX: Z00.00 Encounter for general adult medical examination without abnormal findings (principal); Z13.6 Encounter for screening for cardiovascular disorders; R73.09 Other abnormal glucose
CPT/HCPCS: 36415; 80061; 83036; 85025

== ENCOUNTER → 2023-11-17 | Outpatient (CLI) | payer OTHER, SELFPAY ==
--- OUTSIDE RECORDS SUMMARY | 2023-11-17 09:08 | XMS RPT_ITS | CCD ---
Author Name Unknown Address [address] [facility] [address] [place] [address] Organization [facility] Care Team Providers Care Physics Department Chair Name Role Phone Pcp, No Primary Care Provider Hyacinth PATEL MD, NICHOLE Attending Hyacinth alves Allergies Allergy Classification Reported Allergen(s) Allergy Type Date of Onset Reaction(s) Facility (2 sources) Doxycycline; Translations: [doxycycline] Drug Allergy Anaphylaxis (disorder) [facility] Work Phone: Medications Current Medications Medication Drug Class(es) Dates Sig (Normalized) Sig (Original) Calcium (1 source) Phosphate Binder, Calcium Start: 06-14-2022 calcium (as carbonate) 500 mg oral tablet 0 Refill(s) Start Date: 06/14/22 Status: Ordered levothyroxine sodium 0.05 mg oral tablet (3 sources) l-Thyroxine Start: 06-21-2022 levothyroxine 50 mcg (0.05 mg) oral tablet See Instructions, TAKE ONE & ONE-HALF TABLET BY MOUTH MONDAY & MONDAY. TAKE ONE TABLET ON ALL OTHER DAYS, # 104 tab(s), 3 Refill(s), JINA, Pharmacy: [facility], Hypothyroid, 160, cm, 06/14/22 8:51:00 EDT, Height, kg, 06/14/22 8:51:00 EDT,... Start Date: 06/21/22 Status: Ordered Completed/Discontinued Medications Medication Drug Class(es) Dates Sig (Normalized) Sig (Original) {24 (drospirenone 3 MG / Ethinyl Estradiol 0.02 MG Oral Tablet) / 4 (Inert Ingredients 1 MG Oral Tablet) } Pack [Loryna 28 Day] (1 source) Progestin, Estrogen Start: 06-14-2022 take 1 tablet by mouth once daily at mealtime Loryna 3 mg-0.02 mg oral tablet TAKE 1 TABLET BY MOUTH ONCE DAILY WITH FOOD Start Date: 06/14/22 Status: Ordered Problems Problem Classification Problem Date Documented Da te Episodic/Chronic Nutritional deficiencies (2 sources) Vitamin D deficiency 05-20-2020 Chronic Other skin disorders (2 sources) Night sweats 05-20-2020 Episodic Thyroid disorders (4 sources) Swathi thyroiditis; Translations: [Hypothyroidism] 05-20-2020 Chronic Results Test Name Value Interpretation Reference Range Facil ity Encounters Encounter Date Encounter Type Care Provider Facility Start: 01-03-2023 End: 01-04-2023 ambulatory NICHOLE PATEL MD Facility:[facility] Start: 01-03-2023 End: 01-03-2023 Patient encounter procedure NICHOLE PATEL MD [facility] Start: 12-10-2021 End: 12-10-2021 Patient encounter procedure NICHOLE PATEL MD [facility] Start: 08-20-2010 End: 08-20-2010 Patient encounter procedure Yamilet Villalobos Work Phone: [facility] Start: 08-20-2010 Results Only Yamilet Villalobos Work Phone: [facility] Start: 12-23-2008 End: 12-23-2008 Patient encounter procedure Yamilet Villalobos Work Phone: [facility] Start: 12-23-2008 Results Only Yamilet Villalobos Work Phone: [facility] Procedures Date Procedure Procedure Detail Performing Clinician Start: 08-20-2010 CONVERTED SURGICAL PATHOLOGY Yamilet Villalobos Work Phone: Start: 12-23-2008 CONVERTED SURGICAL PATHOLOGY Yamilet Villalobos Work Phone: Payers Date Payer Category Payer Unknown [id number] 2003 Unknown [id number] 1976 Unknown [id number] Social History Date Type Detail Facility Tobacco smoking stat [facility] Unknown if ever smoked [facility] Sex Assigned At Not on file [facility] Start: 05-20-2020 Never smoked t obacco (finding) [facility] Sex Assigned At Female [facility] Evaluation + Plan note Laboratory Note Date & Type Note Facility Evaluation + Plan note Future Appointments Appointment Date:06/14/2022 09:00:00 AM Scheduled Provider:ALAINA MIGUEL MD Location:[facility] Appointment Type:[facility] Future Scheduled TestsThyroid Stimulating Hormone 06/15/22Fr T4 06/15/22Free T3 06/15/22Vitamin D Level 06/15/22Complete Metabolic Panel 06/15/22 [facility] Evaluation + Plan note Laboratory Note Date & Type Note Facility Evaluation + Plan note Future Appointments Appointment Date:06/15/2023 09:00:00 AM Scheduled Provider:ALAINA MIGUEL MD Location:[facility] Appointment Type:[facility] Future Scheduled TestsThyroid Antibodies 06/14/23Thyroid Antibodies 06/14/22Thyroid Stimulating Hormone 06/14/23Free T4 06/14/23Free T3 06/14/23Complete Metabolic Panel 06/14/23anti-Thyroid Peroxidase 06/14/23anti-Thyroid Peroxidase 06/14/22 [facility] Hospital course Narrative Note Date & Type Note Facility Hospital course Narrative No data available for this section [facility] Hospital Discharge instructions Note Date & Type Note Facility Hospital Discharge instructions No data available for this section [facility] Progress note Note Date & Type Note Facility Progress note No data available for this section [facility] Summary Purpose Family History No Family History Records Found Advance Directives No Advanced Directives Records Found Additional Source Comments Source Comments (unrecognize d section and content) In the event this informatio n is protected by the Federal Confidentiality of Alcohol and Drug Abuse Patient Records regulations: The Federal rules restrict any use of the information to criminally investigate or prosecute any alcohol or drug abuse patient.[facility] INFORMATION SOURCE (unrecogn ized section and content) FOR RECORDS PERTAINING TO PATIENTS WHO ARE OR HAVE BEEN ENROLLED IN A CHEMICAL DEPENDENCY/SUBSTANCEABUSE PROGRAM, SOME INFORMATION MAY BE OMITTED. This clinical summary was aggregated from multiple sources. Caution should be exercised in using it in the provision of clinical care. This summary normalizes information from multiple sources, and as a consequence, information in this document may materially change the coding, format and clinical context of patient data. In addition, data may be omitted in some cases. CLINICAL DECISIONS SHOULD BE BASED ON THE PRIMARY CLINICAL RECORDS. [facility]. provides no warranty or guarantee of the accuracy or completeness of information in this document.
[2023-11-17 10:38] LABS: Free T3 1.8 pg/mL (2.18-3.98); T4 Free Direct 1.02 ng/dL (0.76-1.46); Thyroid Stim Hormone (TSH) 2.41 uIU/mL (0.358-3.74)
== END | disposition home or self-care (01) ==
LOC: MTLAB 08:43
PROVIDERS: PCP Internal Medicine; Referring Provider Internal Medicine Endocrinology, Diabetes & Metabolism; Visit Provider Internal Medicine Endocrinology, Diabetes & Metabolism
DX: E03.9 Hypothyroidism, unspecified (principal); E06.3 Autoimmune thyroiditis
CPT/HCPCS: 36415; 84439; 84443; 84481

== ENCOUNTER → 2024-01-08 | Outpatient (CLI) | payer OTHER, SELFPAY ==
[2024-01-08 11:35] LABS: Estradiol < 11.0 pg/mL; Follicle Stimulating Hormone 1.7 mIU/mL; Luteinizing Hormone 2.3 mIU/mL
== END | disposition home or self-care (01) ==
LOC: MTLAB 09:20
PROVIDERS: PCP Internal Medicine
DX: N95.8 Other specified menopausal and perimenopausal disorders (principal)
CPT/HCPCS: 36415; 82670; 83001; 83002

== ENCOUNTER → 2024-06-07 | Outpatient (CLI) | payer OTHER, SELFPAY ==
[2024-06-07 11:18] LABS: AST(SGOT) 25 U/L (15-37); Alanine Aminotransfer ALT/SGPT 28 U/L (13-56); Albumin, Serum 3.4 g/dL (3.2-5.0); Alkaline Phosphatase 33 U/L (45-117); Anion Gap 9 (5-15); BUN 19 mg/dL (7-18); BUN/Creat Ratio 18.8 RATIO (10-20); Calcium,Total 8.7 mg/dL (8.5-10.1); Chloride 105 mmol/L (98-107); Creatinine, Serum 1.01 mg/dL (0.55-1.02); EST Glomerular Filtration Rate 62 mL/min (>60); Est Glom Filt Rate - Afr Amer 75 mL/min (>60); Free T3 1.9 pg/mL (2.18-3.98); Globulin 3.5 g/dL (2.2-4.2); Glucose 96 mg/dL (74-106); Potassium 3.9 mmol/L (3.5-5.1); Protein, Total 6.9 g/dL (6.4-8.2); Sodium Level 138 mmol/L (136-145); T4 Free Direct 1.12 ng/dL (0.76-1.46)
== END | disposition home or self-care (01) ==
LOC: MTLAB 08:48
PROVIDERS: PCP Internal Medicine; Referring Provider Internal Medicine Endocrinology, Diabetes & Metabolism; Visit Provider Internal Medicine Endocrinology, Diabetes & Metabolism
DX: E06.3 Autoimmune thyroiditis (principal); E03.9 Hypothyroidism, unspecified
CPT/HCPCS: 36415; 80053; 84439; 84443; 84481

== ENCOUNTER → 2024-09-24 | Outpatient (CLI) | payer OTHER, SELFPAY ==
[2024-09-24 11:00] LABS: T4 Free Direct 1.34 ng/dL (0.76-1.46)
== END | disposition home or self-care (01) ==
LOC: MTLAB 09:00
PROVIDERS: PCP Internal Medicine; Referring Provider Internal Medicine Endocrinology, Diabetes & Metabolism; Visit Provider Internal Medicine Endocrinology, Diabetes & Metabolism
DX: E03.9 Hypothyroidism, unspecified (principal); E06.3 Autoimmune thyroiditis
CPT/HCPCS: 36415; 84439; 84443; 84481

== ENCOUNTER → 2024-12-13 | Outpatient (CLI) | payer OTHER, SELFPAY ==
[2024-12-13 10:25] LABS: Hematocrit 40.3 % (37-47); Hemoglobin 13.6 g/dL (12.0-15.0); Mean Corp Hgb Conc 33.7 g/dL (32-36); Mean Corpuscular Hgb 31.5 pg (27.0-32.0); Mean Corpuscular Volume 93.3 fL (81-99); Mean Platelet Vol. 9.7 fl (6.2-12.0); Platelet Count 233 K/mm3 (150-450); RBC Distribution Width CV 12.6 % (11.6-14.6); RBC Distribution Width SD 43.1 fl (35.1-43.9); Red Blood Count 4.32 M/mm3 (4.2-5.4)
[2024-12-13 11:28] LABS: ALB/GLOB Ratio 1.6 RATIO (0.9-2.4); AST(SGOT) 26 U/L (<=31); Alanine Aminotransfer ALT/SGPT 24 U/L (<=34); Albumin, Serum 4.2 g/dL (3.5-5.0); Alkaline Phosphatase 31 U/L (35-104); Anion Gap 10 (5-15); BUN 20 mg/dL (4-19); Calcium 9.2 mg/dL (7.6-11.0); Carbon Dioxide 25.2 mmol/L (22.0-29.0); Chloride 103 mmol/L (96-108); Creatinine, Serum 1.06 mg/dL (0.70-1.20); EST Glomerular Filtration Rate 65 (>60); Globulin 2.6 g/dL (2.2-4.2); Glucose 97 mg/dL (70-99); Potassium 4.2 mmol/L (3.3-5.1); Protein, Total 6.8 g/dL (5.9-8.4); Sodium Level 138 mmol/L (133-145); Total Bilirubin 0.41 mg/dL (0.00-1.30)
== END | disposition home or self-care (01) ==
LOC: MTLAB 08:53
PROVIDERS: PCP Internal Medicine; Referring Provider Internal Medicine Endocrinology, Diabetes & Metabolism; Visit Provider Internal Medicine Endocrinology, Diabetes & Metabolism
DX: E03.9 Hypothyroidism, unspecified (principal); E06.3 Autoimmune thyroiditis
CPT/HCPCS: 36415; 80053; 82306; 84439; 84443; 84481; 85027

== ENCOUNTER → 2025-01-08 | Outpatient (CLI) | payer OTHER, SELFPAY ==
[2025-01-08 11:27] LABS: Ferritin 34 ng/mL (22-378); Iron 164 ug/dL (50-170); Iron Binding Capacity,Total 404 ug/dL (250-450); Iron Binding Capacity,Unsat 240 ug/dL (228-428)
== END | disposition home or self-care (01) ==
LOC: MTLAB 09:17
PROVIDERS: PCP Internal Medicine; Referring Provider Internal Medicine Endocrinology, Diabetes & Metabolism; Visit Provider Internal Medicine Endocrinology, Diabetes & Metabolism
DX: E03.9 Hypothyroidism, unspecified (principal); E06.3 Autoimmune thyroiditis; E67.3 Hypervitaminosis D
CPT/HCPCS: 36415; 82728; 83540; 83550

== ENCOUNTER → 2025-06-20 | Outpatient (CLI) | payer OTHER, SELFPAY ==
[2025-06-20 13:33] LABS: AST(SGOT) 33 U/L (<=31); Alanine Aminotransfer ALT/SGPT 36 U/L (<=34); Albumin, Serum 4.3 g/dL (3.5-5.0); Alkaline Phosphatase 34 U/L (35-104); Anion Gap 11 (5-15); BUN 21 mg/dL (4-19); BUN/Creat Ratio 22.1 RATIO (10-20); Calcium,Total 9.4 mg/dL (7.6-11.0); Carbon Dioxide 23.9 mmol/L (21.0-32.0); Chloride 104 mmol/L (98-108); Cholesterol 199 mg/dL (<=200); Globulin 2.8 g/dL (2.2-4.2); Glucose 92 mg/dL (70-99); Low Density Lipoprotein Calc. 90 mg/dL; Potassium 4.2 mmol/L (3.3-5.1); Triglycerides 69 mg/dL; Very Low Density Lipoprotein 14 mg/dL (5-40); cholesterol:hdl ratio screen 2.09
[2025-06-20 14:17] LABS: Free T3 2.5 pg/mL (2.18-3.98); Vitamin D,25 Hydroxy 89.0 ng/mL (30-100)
== END | disposition home or self-care (01) ==
LOC: MTLAB 08:40
PROVIDERS: PCP Internal Medicine; Referring Provider Internal Medicine Endocrinology, Diabetes & Metabolism; Visit Provider Internal Medicine Endocrinology, Diabetes & Metabolism
DX: E03.9 Hypothyroidism, unspecified (principal); E06.3 Autoimmune thyroiditis; E67.3 Hypervitaminosis D
CPT/HCPCS: 36415; 80053; 80061; 82306; 84439; 84443; 84481